=== PATIENT | female | born 1960 | race Caucasian/White ===

== ENCOUNTER 2023-12-24 20:25 | Emergency (ER) | payer OTHER, SELFPAY ==
[2023-12-24 20:47] VITALS: BP 175/85; PULSE 73; RESP 18; TEMP 36.6; O2SAT 95; BMI 30.2
--- NOTE | 2023-12-24 20:52 | USR_ITS ---
PROCEDURE INFORMATION: Exam: US Duplex Right Lower Extremity Veins, Limited Exam date and time: 12/24/2023 9:29 PM Age: 63 years old Clinical indication: Pain; Leg, lower; Prior surgery; Surgery date: 1-6 months; Surgery type: S/P orif right lower leg 2 months ago. ; Additional info: Leg pain, concern for dvt TECHNIQUE: Imaging protocol: Real-time duplex ultrasound of the right extremity with 2-D palacio scale, color Doppler flow and spectral waveform analysis including responses to compression and other maneuvers (when performed) with image documentation. Limited exam was focused on the right lower extremity veins. COMPARISON: No relevant prior studies available. FINDINGS: Right deep veins: Unremarkable. The common femoral, femoral, proximal profunda femoral and popliteal veins are patent without thrombus. Normal Doppler waveforms. Normal compressibility and/or augmentation response. Superficial veins: Greater saphenous vein at the saphenofemoral junction is patent without thrombus. Soft tissues: Unremarkable. US/[place] [id number] IMPRESSION: No evidence of deep vein thrombosis.
--- NOTE | 2023-12-24 20:52 | W.ED.GENADLT ---
HPI - General Adult General: Chief complaint: Extremity Injury, Lower Stated complaint: Left leg pain Time Seen by Provider: 12/24/23 20:44 History of Present Illness: 63-year-old female comes in today with increased pain and discomfort to the right lower extremity. Patient has a history of ankle fracture and is presently in a cast. Patient had woken with her surgeon that had cared for the ankle in [facility] and he recommended she be evaluated in the ER for a possible blood clot. Patient has a scheduled follow-up with a local orthopedist for follow-up regarding her injury. Patient appears nontoxic. Patient appears in mild pain at rest. Related Data Previous Rx's Medication Instructions Recorded hydrocodone 5 mg-acetaminophen 325 1 tab PO Q8H PRN pain #10 tabs 12/24/23 mg tablet Review of Systems General: Reports: 10 or more systems reviewed and unremarkable except in HPI and below Musc: Reports: extremity pain Physical Exam Const: COMMON NORMALS: alert HENMT: COMMON NORMALS: normocephalic HEAD & SCALP: normocephalic Neck/C-Spine: COMMON NORMALS: full ROM Resp: COMMON NORMALS: normal respiratory effort Cardio: COMMON NORMALS: regular rate RATE: regular rate : COMMON NORMALS: Yes no CVA tenderness BLADDER/KIDNEY EXAM: Yes no CVA tenderness Back/Pelvis: COMMON NORMALS: no CVA tenderness Extremity: NARRATIVE EXTREMITY EXAM: Right lower extremity has a short leg cast. Cap refill is intact. Minimal to no swelling is noted. Neuro: SENSORIUM/ORIENTATION: Yes alert Skin: COMMON NORMALS: no rashes or lesions noted GENERAL SKIN EXAM: no rashes or lesions noted Course Vital Signs: Vital signs: Vital Signs Temperature 98 F 12/24/23 20:47 Pulse Rate 73 12/24/23 20:47 Respiratory Rate 18 12/24/23 20:47 Blood Pressure 175/85 12/24/23 20:47 Pulse Oximetry 95 12/24/23 20:47 [facility] - General Adult Medical Decision Making 63-year-old female comes in today for evaluation of right lower extremity pain. Patient has a fracture of the right lower extremity/ankle. Patient appears nontoxic. Patient appears in mild pain. Patient is deaf. Extremity appears normal. Patient has a cast with minimal swelling and proper cap refill distally. Differential diagnosis fracture, DVT, malingering. Ultrasound noted no DVT. Patient was wanting the cast removed I did not recommend it at this time patient can follow-up with orthopedics for further evaluation and consideration of removal of cast. Patient reported understanding. Patient discharged home. Patient was given 10 tablets of 5mg hydrocodone and a prescription for complaints of pain. XR interpretation done by ED provider, pending radiology final review Discharge Plan Discharge Patient Disposition: Home Clinical Impression: Ankle fracture Qualifiers: Encounter type: subsequent encounter Fracture type: closed Laterality: right Fracture healing: with routine healing Qualified Code(s): S82.891D - Other fracture of right lower leg, subsequent encounter for closed fracture with routine healing Condition: Stable Prescriptions: New hydrocodone-acetaminophen 5-325 mg tablet 1 tab PO Q8H PRN (Reason: pain) Qty: 10 0RF Discharge Orders: Discharge ED (Routine); Ordered 12/24/23 Ordered By: Michael Lira Referrals: Gentry Perry DPM [Physician] - Discharge Diet: Usual diet Discharge Activity: Increase activity as tolerated Patient Instructions: Ankle Fracture (ED) Activity Restrictions/Additional Instructions: Case management will contact you regarding follow-up appointment with foot and ankle surgeon for further evaluation and treatment. 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
[2023-12-24] MEDS: HYDROcodone-acetaminophen 5-325 mg Tablet 1 TAB PO (21:16)
[2023-12-24 21:54] VITALS: PULSE 70; RESP 16; O2SAT 96
[2023-12-24 22:11] VITALS: PULSE 72; RESP 16; O2SAT 96
--- NOTE | 2023-12-25 01:41 | DCPLANNER ---
Message sent podiatry for follow up.
== END 2023-12-24 22:00 | disposition home or self-care (01) ==
PROVIDERS: Emergency Provider Nurse Practitioner Family
DX: S82.891A Other fracture of right lower leg, initial encounter for closed fracture (principal); X58.XXXA Exposure to other specified factors, initial encounter
CPT/HCPCS: 93971; 99284

== ENCOUNTER 2023-12-30 06:00 | Outpatient (CLI) | payer OTHER, SELFPAY | END 2023-12-30 06:01 | LOC: SPT 12-31 11:54 | PROVIDERS: Visit Provider Podiatrist Foot & Ankle Surgery | DX: Z46.89 Encounter for fitting and adjustment of other specified devices (principal); S82.891S Other fracture of right lower leg, sequela; X58.XXXS Exposure to other specified factors, sequela | CPT/HCPCS: L4361 ==

== ENCOUNTER → 2023-12-30 14:27 | Outpatient (BNVA) | payer OTHER, SELFPAY | PROVIDERS: Visit Provider Podiatrist Foot & Ankle Surgery | DX: S82.891D Other fracture of right lower leg, subsequent encounter for closed fracture with routine healing (principal); X58.XXXD Exposure to other specified factors, subsequent encounter; Z98.890 Other specified postprocedural states | CPT/HCPCS: 73610 ==

== ENCOUNTER → 2024-04-27 15:26 | Outpatient (BNVA) | payer OTHER, SELFPAY | PROVIDERS: Visit Provider Podiatrist Foot & Ankle Surgery | DX: M25.571 Pain in right ankle and joints of right foot (principal); Z98.890 Other specified postprocedural states | CPT/HCPCS: 73610; 73620 ==

== ENCOUNTER → 2024-06-01 13:00 | Outpatient (BNVA) | payer MEDICARE, SELFPAY | PROVIDERS: Visit Provider Podiatrist Foot & Ankle Surgery | DX: Z98.890 Other specified postprocedural states | CPT/HCPCS: 99213 ==

== ENCOUNTER 2024-06-11 06:00 | Outpatient (RCR) | payer MEDICARE, SELFPAY | END 2024-07-08 23:59 | disposition home or self-care (01) | LOC: APT 06:00 | PROVIDERS: Visit Provider Podiatrist Foot & Ankle Surgery | DX: Z47.89 Encounter for other orthopedic aftercare (principal) | CPT/HCPCS: 97110; 97112; 97161; 97530 ==

== ENCOUNTER 2024-07-09 06:30 | Outpatient (RCR) | payer MEDICARE, SELFPAY | END 2024-08-08 23:59 | disposition home or self-care (01) | LOC: APT 06:30 | PROVIDERS: Visit Provider Podiatrist Foot & Ankle Surgery | DX: Z47.89 Encounter for other orthopedic aftercare (principal) | CPT/HCPCS: 97110; 97112; 97530 ==

== ENCOUNTER → 2024-07-13 12:56 | Outpatient (BNVA) | payer MEDICARE, SELFPAY | PROVIDERS: Visit Provider Podiatrist Foot & Ankle Surgery | DX: Z98.890 Other specified postprocedural states (principal) | CPT/HCPCS: 99213 ==

== ENCOUNTER → 2024-08-25 12:02 | Outpatient (BNVA) | payer MEDICARE, SELFPAY | PROVIDERS: PCP Family Medicine; Visit Provider Family Medicine | DX: G47.33 Obstructive sleep apnea (adult) (pediatric) (principal); E78.5 Hyperlipidemia, unspecified; B07.9 Viral wart, unspecified; Z00.00 Encounter for general adult medical examination without abnormal findings; E03.9 Hypothyroidism, unspecified; Z12.11 Encounter for screening for malignant neoplasm of colon; L60.0 Ingrowing nail | CPT/HCPCS: 80053; 80061; 82306; 82607; 83036; 84443; 85025 ==

== ENCOUNTER 2024-09-02 11:13 | Outpatient (CLI) | payer MEDICARE, SELFPAY ==
--- NOTE | 2024-09-02 11:20 | MM_ITS ---
WS: [id number] BILATERAL 3D TOMOSYNTHESIS DIGITAL SCREENING MAMMOGRAPHY WITH CAD CLINICAL INFORMATION: Z12.39 - Encounter for other screening for malignant neop... HISTORY: Screening mammogram. No current complaints. COMPARISON: None. TECHNIQUE: Bilateral CC and MLO views. FINDINGS: Scattered fibroglandular densities bilaterally. No suspicious focal mass, asymmetry, calcifications, or architectural distortion. No evidence of malignancy. MM/MM scr tomosynthesis [id number] IMPRESSION: DENSITY: There are scattered areas of fibroglandular density. BI-RADS: 1 - Negative. FOLLOW UP: 1 Year Follow-up Recommend return to annual screening mammography.
== END 2024-09-02 11:14 | disposition home or self-care (01) ==
PROVIDERS: PCP Family Medicine; Visit Provider Family Medicine
DX: Z12.31 Encounter for screening mammogram for malignant neoplasm of breast (principal); R92.323 Mammographic fibroglandular density, bilateral breasts
CPT/HCPCS: 77063; 77067

== ENCOUNTER → 2024-09-05 08:48 | Outpatient (BNVA) | payer MEDICARE, SELFPAY | PROVIDERS: PCP Family Medicine; Referring Provider Family Medicine; Visit Provider Student in an Organized Health Care Education/Training Program | DX: Z12.11 Encounter for screening for malignant neoplasm of colon (principal) | CPT/HCPCS: 99204 ==

== ENCOUNTER 2024-10-11 08:02 | Day surgery (SDC) | payer OTHER, SELFPAY ==
[2024-10-11 08:22] VITALS: BP 154/64; PULSE 75; RESP 16; TEMP 36.1; O2SAT 94; BMI 32.5
[2024-10-11] MEDS: sodium chloride 0.9% 1,000 ML 15 ML IV (08:35)
--- NOTE | 2024-10-11 08:49 | P.ANESASSM_ITS ---
Pre-Anesthetic Assessment Height/Weight: Height 5 ft 1 in Weight 172 lb Temp Pulse Resp BP Pulse Ox O2 Del Method 97 F L 75 16 154/64 94 Room Air 10/11/24 08:22 10/11/24 08:22 10/11/24 08:22 10/11/24 08:22 10/11/24 08:22 10/11/24 08:22 Operation Date: 10/11/24 09:15 Proposed Procedures p Colonoscopy 19094 G0121, Z12.11(Not Applicable) - Elbert Pérez MD Last intake: Intake Last Liquid Date 10/10/24 Last Liquid Time 23:00 Last Solid Date 10/09/24 Last Solid Time 18:00 Social No alcohol and No tobacco Quit smoking 5 years ago Exam alert, oriented x 3, clear to auscultation bilaterally and regular rate & rhythm Airway Submandibular: within normal limits Cervical ROM: within normal limits Mallampati: Class II Dentition: full Anesthetic Plan ASA status: 3 Anesthesia: MAC Other: No prior issues with anesthesia Patient is deaf, seismograph computer used NPO since yesterday evening History of CRISTOFER, CPAP nightly Quit smoking 5 years ago Denies any cardiac issues Labs reviewed from August Plan for MAC anesthesia Medications/Allergies Home Medications ?Medication ?Instructions ?Recorded ?Confirmed ?Last Taken ?Type CAM Boot #1 ea 12/30/23 09/05/24 Unkn own Rx ASO brace to the RIGHT #1 ea 01/14/24 09/05/24 Unkn own Rx DME: Walker #1 ea 01/14/24 09/05/24 Unkn own Rx cpap supplies, hose, mask #1 ea 08/25/24 09/05/24 Unkn own Rx rosuvastatin 10 mg tablet (Crestor) 10 mg PO DAILY lip ids #90 tabs 09/01/24 10/05/24 10/09/24 Rx aspirin 81 mg tablet,delayed 81 mg PO DAILY 10/05/24 0 10/05/24 10/09/24 History release Allergies Allergy/AdvReac Type Severity Reaction Status Date / Time meperidine Allergy Severe Unknown Verified 10/11/24 08:21 metoclopramide Allergy Severe ALGY-Hives Verified 10/11/24 08:21 morphine Allergy Severe Unknown Verified 10/11/24 08:21 sulfamethoxazole (From Allergy Severe ALGY-Difficulty Verified 10/11/24 08:21 Sulfamethoxazole-Trimethoprim) Breathing trimethoprim (From Allergy Severe ALGY-Difficulty Verified 10/11/24 08:21 Sulfamethoxazole-Trimethoprim) Breathing Current Medications Generic Name Dose Route Start Last Admin Trade Name Freq PRN Reason Stop Dose Admin Sodium Chloride 1,000 mls @ 15 mls/hr 10/11/24 08:09 10/11/24 08:35 Sodium Chloride 0.9% IV 10/12/24 08:08 15 mls/hr .Q24H PRN Administration COLONOSCOPY FLUIDS PFSH Anesthesia Social History Smoking and tobacco/nicotine status: unknown if used tobacco/nicotine Quit status (tobacco/nicotine): has quit using Second hand smoke exposure: No Additional social history: moved recently from [facility]. active, deaf from soon after . Marital status:
--- NOTE | 2024-10-11 09:43 | W.PM.OPSFHP ---
Same Day Surgery H&P Indication for Procedure/HPI DATE OF PROCEDURE: October 11, 2024 CHIEF COMPLAINT/INDICATIONFOR SURGICAL PROCEDURE: screening colonocoscopy PREOP DIAGNOSIS: screening colonoscopy PLANNED PROCEDURE: Operation Date: 10/11/24 09:15 Proposed Procedures p Colonoscopy 84252 G0121, Z12.11(Not Applicable) - Elbert Pérez MD Medications/Allergies* Home Medications ?Medication ?Instructions ?Recorded ?Confirmed ?Type aspirin 81 mg tablet,delayed 81 mg PO DAILY 10/05/24 10/05/24 History release Allergies/Adverse Reactions Allergy/AdvReac Type Severity Reaction Status Date / Time meperidine Allergy Severe Unknown Verified 10/11/24 08:21 metoclopramide Allergy Severe ALGY-Hives Verified 10/11/24 08:21 morphine Allergy Severe Unknown Verified 10/11/24 08:21 sulfamethoxazole (From Allergy Severe ALGY-Difficulty Verified 10/11/24 08:21 Sulfamethoxazole-Trimethoprim) Breathing trimethoprim (From Allergy Severe ALGY-Difficulty Verified 10/11/24 08:21 Sulfamethoxazole-Trimethoprim) Breathing Current Medications: Generic Name Dose Route Start Last Admin Trade Name Freq PRN Reason Stop Dose Admin Sodium Chloride 1,000 mls @ 15 mls/hr 10/11/24 08:09 10/11/24 08:35 Sodium Chloride 0.9% IV 10/12/24 08:08 15 mls/hr .Q24H PRN Administration COLONOSCOPY FLUIDS Pertinent History/Comorbid Conditions* Social History Smoking and tobacco/nicotine status: unknown if used tobacco/nicotine Quit status (tobacco/nicotine): has quit using Second hand smoke exposure: No Additional social history: moved recently from [facility]. active, deaf from soon after . Marital status: Pertinent Exam Findings alert, oriented x 3, clear to auscultation bilaterally, regular rate & rhythm and procedure specific exam findings abdomen soft, nt, nd Recommendations Risks and benefits of procedure reviewed Surgery/Procedure today Other Plans: Blood Bank Credit Clerk present via iPad. All questions answered Coding Level of Care Code Acute Code for Chg Fwd
[2024-10-11 09:50] VITALS: BP 102/62; PULSE 65; RESP 16; TEMP 36.1; O2SAT 97
[2024-10-11 10:01] VITALS: BP 122/64; PULSE 61; RESP 16; O2SAT 93
--- NOTE | 2024-10-11 10:25 | ANE.PACU2 ---
Inpatient post-anesthesia follow up: Airway intact: Yes Vital signs: Temperature 97.0 F Pulse Rate 61 Respiratory Rate 16 Blood Pressure 122/64 Pulse Oximetry 93 Oxygen Delivery Me thod Room Air Oxygen Flow Rate Fraction of Inspir ed Oxygen Hydration adequate: Yes Nausea and vomiting: No Pain level: 1 Mental status: Baseline
== END 2024-10-11 09:25 | disposition home or self-care (01) ==
PROVIDERS: PCP Family Medicine; Visit Provider Student in an Organized Health Care Education/Training Program
PROC: 0DJD8ZZ Inspection of Lower Intestinal Tract, Via Natural or Artificial Opening Endoscopic (ICD-10-PCS; CPT 45378; principal; 2024-10-11 09:15)
DX: Z12.11 Encounter for screening for malignant neoplasm of colon (principal); Z80.0 Family history of malignant neoplasm of digestive organs; K57.30 Diverticulosis of large intestine without perforation or abscess without bleeding; G47.33 Obstructive sleep apnea (adult) (pediatric); Z87.891 Personal history of nicotine dependence; H91.90 Unspecified hearing loss, unspecified ear; Z88.8 Allergy status to other drugs, medicaments and biological substances; Z88.5 Allergy status to narcotic agent; Z88.2 Allergy status to sulfonamides; Z79.899 Other long term (current) drug therapy; Z79.82 Long term (current) use of aspirin
CPT/HCPCS: 45378; J2704; J7030